=== PATIENT | male | born 1980 | race Caucasian/White ===

== ENCOUNTER 2017-08-18 01:26 | Inpatient (IN) | payer BC, OTHER ==
[~2017-08-18] VITALS: Ht 185.4 cm; Wt 88.5 kg
[2017-08-18] MEDS ORDERED: ZIPRASIDONE IM 20 MG VIAL. IM ONE ×4 (01:35→01:45)
[2017-08-18 03:41] LABS: BASO % 1 % (0-3); EOS % 0 % (0-3); HEMATOCRIT 43.8 % (39.0-53.0); HEMOGLOBIN 15.4 g/dL (13.0-17.5); LYMPH # 1.3 x10^3/uL (1.0-4.8); LYMPH % 28 % (24-48); MEAN CORPUSCULAR HEMOGLOBIN 31 pg (25-35); MEAN CORPUSCULAR HGB CONC 35 g/dL (31-37); MEAN CORPUSCULAR VOLUME 87 fL (79-100); MONO # 0.2 x10^3/uL (0.0-1.1); MONO % 4 % (0-9); NEUT % 66 % (31-73); PLATELET COUNT 257 x10^3/uL (140-400); RED BLOOD COUNT 5.02 x10^6/uL (4.30-5.70); RED CELL DISTRIBUTION WIDTH 13.8 % (11.5-14.5); WHITE BLOOD COUNT 4.5 x10^3/uL (4.0-11.0)
--- NOTE | 2017-08-18 03:44 | PHYS DOC ---
Past History Past Medical History: Alcoholism, Anxiety, Bipolar Past Surgical History: No Surgical History Smoking: Cigarettes, Less than 1pk/day Alcohol Use: Heavy Drug Use: None Adult General Chief Complaint Chief Complaint: SUICDAL IDEATION HPI HPI Patient is a 37-year-old gentleman who presents to the ER today by EMS secondary to comments that his regarding suicidal ideation and threats to harm himself. Patient has been drinking a significant amount of vodka today and is fairly intoxicated. Patient has alcohol on his breath. Upon his initial arrival to the ED my evaluation reveals the patient to his making comments to harm himself. Patient reports he is wants to . He reports he is wants to fall asleep and not wake up. Patient reports that he wants to leave here and go kill himself. Patient also reports that he hates everybody and he wants to kill everybody as well. Patient is extremely aggressive in the ER using multiple expletives comments and threats to myself as well as staff when verbally approached regarding our need to obtain labs in order to rule out other causes for his altered mentation in order to medically clear him for a total psychiatry evaluation. Patient became extremely agitated and verbally aggressive during this interaction. Patient was clearly not going to allow our staff to obtain an IV, obtain blood, or give him any medication IM. Patient reports he is mortified of needles and will absolutely refuse any injections while here. Patient reports he wants to get up and leave and feels that we are holding him against his will at this time. I have tried to explain to the patient that this time he is intoxicated and I cannot assess his competency her capacity for medical decision making and therefore we need to hold him here for his safety as well as safety of the community. Patient has repeated multiple comments regarding hating everybody here and wanting to kill everybody. I explained to him that his statements such as those, especially in light of was happening in the world i.e. [place], [place], that it would be extremely negligent on my part to let him leave here AGAINST MEDICAL ADVICE. Upon walking out of patient's room, [place] [employer] was actually already in the hallway and i have requested their for assistance in managing and restraining this patient. I have explained to them that I feel that this patient is at high risk to harm himself and poses a significant danger to the community with his comments of wanting to kill everybody. Although the patient is intoxicated, it is impossible for me to assess the true risk of this patient , whether or not he has an arsenal of guns and whether or not his threats are secondary to his intoxication or whether or not these are threats center and based upon legitimate planning. In either case I do not feel comfortable allowing this patient to sign out AGAINST MEDICAL ADVICE. We have [facility] security nearby to assist with management of this patient. After [place] [employer] officers have evaluated the patient, they feel that the patient is not an immediate threat to himself and or the community and they do not feel that it would be appropriate for them to assist with restraining the patient and that they feel that this would be a violation of his civil rights. Despite informing [place] police that as a medical professional I feel that the patient is not competent and does not have the capacity for medical decision making at this time and that I feel that he will likely need an involuntary hold , they once again informed me that they have run the case by their air cargo ground crew supervisor and that he has reiterated their policy that they are not to restrain or assist in restraining this patient as they feel that it would be a violation of the patient's civil rights despite my assessment. At this time I have deferred to the [place] police officers judgement since I'm not aware of what their policies and have no direct knowledge of their policy. At this time though, i have informed them that I do not feel that this is a safe situation for myself or for my staff here at [facility], especially in light of the patient's comments , his aggressive behavior, and his refusal to undress and our lack of knowledge as to whether not this patient (who has made threats to kill everyone here) has weapons on him. Once again I have requested from the [place] police officers that they assist us with holding patient down while he obtains a shot of Geodon to assist with chemical restraining of this patient. Again they have informed me that they feel that this would be a violation of his civil rights for them to hold him down to force medications on him despite understanding that as a medical professional and ER physician, that i have determined that this patient is a harm to himself and others and that he does not possess the ability to make decisions on his ow. They have once again confirmed from there air cargo ground crew supervisor that they will not be able to assist. Thanks to the assistance of our warehouse traffic supervisor and our nursing staff, we have been able to negotiate with the patient and he has allowed us to give him an injection of Geodon prior to undressing and searching him and placing an IV in him. He reports that once he is sedate that he would allow this to occur. Although clearly not optimal, I feel that in the situation that we are currently in that this is the best option that we have (given the limit resources and lack of police back up) to keep the patient, the community, and our medical staff a safe as possible. Patient has been reevaluated and is currently much calmer and is no longer making threats of killing other people. Patient is clearly still making threats of harming himself and still feels very depressed and is still making comments regarding wanting to sleep and not wake up. Review of systems: Constitutional: Denies fever or chills Eyes: Denies change in visual acuity, redness, or eye pain HENT: Denies nasal congestion or sore throat All other systems were reviewed and found to be within normal limits, except as documented in this note. Physical exam Constitutional: Well developed, well nourished, no acute distress, non-toxic appearance. HENT: Normocephalic, atraumatic, bilateral external ears normal, Eyes: EOMI, conjunctiva normal, no discharge. Reevaluation: Pupils 4 mm and reactive. Neck: Normal range of motion, no tenderness, supple, no stridor. Cardiovascular:Heart rate regular rhythm, Lungs & Thorax: Bilateral breath sounds clear to auscultation Abdomen: Bowel sounds normal, soft, no tenderness, no masses, no pulsatile masses. Skin: Warm, dry, no erythema, no rash. Back: No tenderness, no CVA tenderness. Extremities: No tenderness, no cyanosis, no clubbing, ROM intact, no edema. Neurologic: Alert and oriented X 3, normal motor function, normal sensory function, no focal deficits noted. Psychologic: Aggressive, tearful at times, agitated, threatening, suicidal ideation, homicidal ideation, Assessment and plan: 1. 37-year-old gentleman who is clearly intoxicated presents to the ED today by EMS secondary to being called by his roommate for having suicidal thoughts. Patient has been sedated chemically with Geodon 20 mg IM. Patient will need to have labs drawn to be medically cleared so that we can have him call psychiatry evaluate the patient further. Patient is medically stable for evaluation by mental health. Patient's alcohol level is elevated at 252. Patient will need to be more sober before mental health will do discuss her talk to patient for evaluation of his suicidality and his homicidality. Patient's currently resting comfortably and was no longer aggressive. Patient has been monitored in the ED. Patient is arousable. Patient will be assessed by mental health once patient is more awake and communicative and less intoxicated. Case will be signed out to the oncoming physician Dr. Kaur for final disposition after mental health/toe psychiatry evaluation. Current Medications Current Medications Current Medications Medications (Trade) Dose Ordered Sig/Renetta Start Time Stop Time Status Last Admin Dose Admin Ziprasidone (Geodon Im) 20 mg 1X ONCE 08/18/17 01:45 08/18/17 02:37 DC Allergies Allergies Allergies Coded Allergies Type Severity Reaction Last Updated Verified terbinafine Allergy Severe Rash 08/18/17 Yes EKG EKG [] Radiology/Procedures Radiology/Procedures [] Course & Med Decision Making Course & Med Decision Making 1 Pertinent Labs and Imaging studies reviewed. (See chart for details) []0754: Report received from Dr Doherty at 0600 shift change. Pt awake, Telepsych has evaluated him and called me to report pt needs involuntary inpatient psychiatric placement. Reports pt has multiple suicide risks including lack of family/support system and heavy etoh use. Apparently psych spoke with pt roommate who reported that whether pt intoxicated or not he's recently been saying that he knows why people kill other people. That pt drinks alcohol heavily daily. Pt came out of exam room, did agree to reenter the room for me to go over Telepsych recommendations. I advised him the screener's recommendations, he became angry yelling/cursing refusing to get back in the room. I advised him for other patient's safety and confidentiality he must remain in room he refused again. Security had to be called to keep patient in room. Awaiting Telepsych written report. 1930: Thru the day pt has been cooperative and calm. His ex SO came to visit, pt admits he needs help and was overheard admitting he needs inpatient etoh rehabilitation and help with destructive thoughts. His only requests thru the day have been food related. Multiple attempts to find placement for patient have been unsuccessful due to lack of beds or not taking "involuntary" status. Dr Lobato refused inpatient [facility] admission, stating that staffing for 1:1 not available. This was also confirmed in conversation with warehouse traffic supervisor. Pt signed out to Dr Escobar at 1800 shift change, see her documentation for further pt disposition. 2009: I assumed care of the patient at shift change. It sounds like when the patient first presented, he was very intoxicated, uncooperative, and agitated. This was more than 18 hours ago. Since I assumed care of the patient 2 hours ago , he has been resting comfortably and quietly. He has been entirely cooperative with nursing staff. He had a sandwich. Patient at this time states that he will be voluntarily admitted to a mental health facility. He does believe that he needs help. ED nursing staff is attempting to find him placement considering his improved mental status. I believe the patient is stable for voluntary admission to a mental health facility and at this time the patient is cooperative and calm. 2330 I took a phone call from the screener, Dr. Ruelas. I discussed with her the patient's improved condition since I have been here since 1800. We discussed the patient's presentation, his initial uncooperative behavior, and his improvement after he has sobered up. She had reviewed the patient's evaluation by the previous screener who evaluated him. She is concerned that the patient presents a significant risk. The previous screener had talked to the patient's family member and landlord. Based on those conversations, and the patient having access to guns, the previous screener had felt strongly that the patient is a danger. The previous screener had recommended involuntary status for that reason. Although the patient at this time is cooperative and is stating that he will go voluntarily, Dr. Ruelas is concerned that if he changed his mind, he needs to be at a facility where he can be switched to involuntary so that he can be kept for his own safety and the safety of others if needed. The facility that might have a bed for him, [address] [place] [address], does not have the capability of involuntary commitment. For This reason, Dr. Ruelas is not recommending that the patient be allowed to be admitted to that facility, and she recommends that he continued to be maintained as involuntary in the emergency department until an appropriate facility can be found for him, hopefully on 08/19. 0410 ED RN has faxed patient reports to [facility] and has talked to various personnel there on the phone. They initially stated that the patient could not be accepted a dose a lot of me at because his blood alcohol level was too high, however, that level is more than 24 hours old. I called [facility] and spoke with Princess Palmer, and Estelita, and then spoke with air cargo ground crew supervisor, Yanira. There was extended amount of discussion as to whether the patient will be voluntary or involuntary. The most recent recommendation by a psychiatrist, see above, is that the patient should continue to be involuntary as was recommended by the first psychiatrist who saw the patient via telepsych. The personnel at [facility] stated that if the patient is cooperative and wants to be voluntary, he cannot be involuntary. However, the concern is that if he goes somewhere where they're not able to handle involuntary, and then he ends up wanting to leave, he still poses a threat to himself and others and would need to be made involuntary. The [facility] staff also told me that even if they were to accept the patient at this time, he would not be transferred there right now, he would be placed on the "moratoria list." I understand this to mean that they would not have a bed right now but that he would be put in line. His placement on the list would be time stamped at the time of his screening evaluation which occurred on 08/18 at 0 7:49 AM. Group Social Worker, Yanira, stated that she is not able to accept the patient because of these factors and she is going to elevate the case to Dr. Rose who will be in about 8:00 this morning. I asked Yanira if she could please have Dr. Rose called the ED at that time and speak with Dr. Kaur, who will be taking over again at 06 100. He is familiar with the patient's case having been here yesterday and will be able to discuss the concerns about the patient's safety and involuntary commitment and hopefully be able to reach a consensus about what can be done to help the patient. 0640: I discussed pt with Dr Ecsobar at 0600 shift change. Interim events noted. Psychiatric and rehab facilities continue to defer for varying reasons and the patient is not being cared for appropriately, his mental health and substance abuse needs are not being met. Pt has been awaiting placement now for > 29 hours and the current system in place is inadequate. Pt sleeping currently, I am awaiting call from Dr Rose. Also waiting for [facility] Olga Smart to hopefully assist with placement. 0746: Patient is awake I went in to give him an update. Although is being cooperative he does express frustration that he's been locked in his room for 30 hours. He was advised that he is able to walk the halls with the nurse as well as she's not busy, I also offered an Ativan or Xanax to help with his anxiety and impatient. He is agreeable and appreciative he admits that he's taken Xanax in the past its just never been prescribed to him. Xanax 0.5 mg ordered now. 0955: Facilities have apparently recommended to RN that repeating etoh and negative findings may aid in placement, despite the fact pt has been here 30+ hours under supervision and no etoh intake or intoxicated behavior. Repeat etoh ordered, <10 result. Pt continues to wait patiently. 1104: I just took a phone call from yet another tele-psych screener this time the psychiatrist was Dr. Gallagher. She advises that the patient is a very high risk for suicidal and homicidal ideation, she says that the patient continues to express suicidal ideation and hopelessness and actually empathizes with recent [place] shooter. She says the patient needs involuntary inpatient treatment and recommends 3 medications: Sertraline 100 mg at bedtime, Seroquel XR 100 mg at bedtime, and Seroquel 50 mg every 6 hours as needed for anxiety/ agitation. Seroquel XR is not on formulary the other 2 have been ordered. 1328: Pt has been calm/cooperative, RN gave seroquel 50mg earlier per patient request as he has now been in the ED exam room 36 hours. He is frustrated because at this point he voluntarily wants to be transferred and seek help. He is aware that is the recommendation of his conservation enforcement officer and requirement of his estranged significant other. He is resting comfortably at this time. 1550: Patient was apparently accepted to [facility] for inpatient admission, somehow he was accepted for voluntary status. He reportedly refused transfer, upon notifying the guidance Center up until this point has considered the patient voluntary only they have now changed their assessment. They feel the patient is not capable of making medical decisions for himself they have declared him an involuntary and at this time are reportedly trying to place the patient at [facility]. 1800: Placement attempts remain ongoing, Pt remains calm/cooperative, will need to be signed out to incoming ED Dr Doherty for 1800 shift change. August 19, 2017: 7:05 PM. After multiple times for several days of trying to obtain adequate mental health placement for this patient, all option is been drained. We have just discussed with [facility], and they are not able to accommodate us at this time. Given the length of time the patient has been in the ED, I feel the most appropriate admitted to the ICU for closer observation and a more stable environment. Patient be admitted to the hospital for homicidal /suicidal ideation. I'll call use disorder. Patient's been placed on withdrawal precautions for alcohol. Patient be a 101. I discussed the case with Dr. Cancino who has agreed to assist us with the care of this patient in the ICU. Critical care time was 35 minutes exclusive of procedures. Current care time of 35 minutes reutilized and treatment and management of this patient's unstable psychiatric condition. IM Geodon had been given to the patient. Patient 's been monitored in the ED now for close to 48 hours he'll be admitted to the ICU for further monitoring. Dragon Disclaimer Dragon Disclaimer This electronic medical record was generated, in whole or in part, using a voice recognition dictation system. Departure Departure: Impression: Primary Impression: Alcohol abuse Additional Impressions: Suicidal ideation Homicidal ideation Disposition: ADMITTED INPATIENT Admitting Physician: Jos eC Cancino Condition: STABLE Referrals: KARMA LOBATO DO (PCP) Problem Qualifiers NICOL DOHERTY MD Aug 18, 2017 03:44 DAVID KAUR DO Aug 18, 2017 08:02 DESTINY ESCOBAR MD Aug 18, 2017 20:20
[2017-08-18 03:55] LABS: ALBUMIN 3.9 g/dL (3.4-5.0); ALBUMIN/GLOBULIN RATIO 1.1 (1.0-1.7); CALCIUM 8.5 mg/dL (8.5-10.1); CREATININE 0.9 mg/dL (0.7-1.3); GFR 94.4; POTASSIUM 3.7 mmol/L (3.5-5.1); TOTAL BILIRUBIN 0.3 mg/dL (0.2-1.0); TOTAL PROTEIN 7.4 g/dL (6.4-8.2)
[2017-08-18 03:56] LABS: ACETAMIN < 2.0 mcg/mL (10-30); ETHANOL 252 mg/dL (0-10); SALIC 0.8 mg/dL (2.8-20.0)
[2017-08-18] MEDS ORDERED: IV NORMAL SALINE 1,000ML 1,000 ML IV SCH (06:59)
[2017-08-18] MEDS ORDERED: OLANZapine 2.5 MG TABLET PO ONE (08:15)
[2017-08-18] MEDS: NICOTINE 14MG PATCH. TD SCH (08:45)
[2017-08-18] MEDS: NICOTINE POLACRILEX GUM 2 MG GUM. BC PRN ×2 (11:00→17:30)
[2017-08-18] MEDS ORDERED: ACETAMINOPHEN 325 MG TABLET PO ONE (12:00)
[2017-08-18 23:17] LABS: AMPHETAMINE/METHAMPHETAMINE NEG (NEG); BARBITURATES NEG (NEG); BENZODIAZEPINES NEG (NEG); CANNABINOIDS NEG (NEG); COCAINE NEG (NEG); METHADONE NEG (NEG); OPIATES NEG (NEG); PHENCYCLIDINE NEG (NEG)
[2017-08-19] MEDS ORDERED: ALPRAZolam 0.5 MG TABLET PO ONE (07:45)
[2017-08-19] MEDS ORDERED: ALPRAZolam 0.25 MG TABLET PO ONE (08:00)
[2017-08-19] MEDS: NICOTINE POLACRILEX GUM 2 MG GUM. BC PRN (08:03)
[2017-08-19] MEDS: NICOTINE 14MG PATCH. TD SCH (08:57)
[2017-08-19] MEDS ORDERED: SERTRALINE 100 MG TABLET. PO ONE (11:30)
[2017-08-19] MEDS: QUEtiapine 50 MG TABLET. PO PRN ×2 (11:57→18:03)
[2017-08-19] MEDS ORDERED: LORazepam 1 MG TABLET PO PRN (19:00)
[2017-08-19] MEDS ORDERED: ONDANSETRON PF 4 MG/2 ML VIAL. IV PRN (19:00)
[2017-08-19 20:40] VITALS: BP 136/91
[2017-08-19 22:00] VITALS: BP 134/84
[2017-08-19 23:00] VITALS: BP 142/88
[2017-08-20] VITALS (12 sets, daily range): BP systolic 90–144; BP diastolic 56–90
[2017-08-20] MEDS: QUEtiapine 50 MG TABLET. PO PRN ×3 (00:11→20:43)
[2017-08-20] MEDS: MULTIVITAMIN with MINERAL TABLET. PO SCH (08:09)
[2017-08-20] MEDS: FOLIC ACID 1 MG TABLET PO SCH (08:09)
[2017-08-20] MEDS: NICOTINE 14MG PATCH. TD SCH (08:09)
[2017-08-20] MEDS ORDERED: FLU VACC QS2017-18 (36MOS+)/PF 0.5 ML SYRINGE. VAX IM ONE (09:00)
[2017-08-20] MEDS: LORazepam 1 MG TABLET PO PRN ×3 (09:29→23:42)
[2017-08-20] MEDS ORDERED: MAGNESIUM CITRATE 296 ML SOLUTION. PO ONE (09:30)
--- NOTE | 2017-08-20 16:38 | HP ---
ADMIT DATE: 08/19/2017 HISTORY OF PRESENT ILLNESS: The patient is a 37-year-old male patient who has been for almost 48 hours at the Emergency Room where he was seen because he made comments to his girlfriend that he has a suicidal ideation and drinking a significant amount of vodka and is fairly intoxicated. He was initially seen for evaluation to reveal the patient has made comments to harm himself and said he wants to . He reports that he wants to fall asleep and not wake up. ____ to go and kill himself and he said that he hates everybody and he wants to kill everybody as well. He was extremely aggressive in the ER, using multiple expletive comments and threats to the physician and the other nursing staff invariably approached regarding the need to obtain labs in order to rule out other causes of his altered mentation. After 48 hours and after contacting the Telepsych who recommended inpatient psych treatment, he was basically admitted to the ICU to have one-on-one sitter. [facility] and [facility] was accepted to go there involuntary and we are waiting for placement for him there. PAST MEDICAL HISTORY: Significant for ____, manic depressive disorder, and bipolar disorder. ____ HISTORY: Unremarkable. ALLERGIES: He is allergic to terbinafine. MEDICATIONS: He is actually on no medication at home. FAMILY HISTORY: One brother and sister both younger and healthy. His father is alive and has type 2 diabetes. Mother is alive and has depression. SOCIAL HISTORY: He lives with the girlfriend. He smokes electronic cigarettes. He drinks variable amounts of alcohol. He has been sober multiple times. He said he does not feel good when he is not drinking and alcohol energized him, but apparently he managed to be sober on multiple occasions and for variable length of time. The last one was lasting about 3-1/2 months. REVIEW OF SYSTEMS: Unremarkable. PHYSICAL EXAMINATION: GENERAL: On examining him on arrival to the ICU, he looked well and was clearly in no apparent respiratory distress, pale but no jaundice, cyanosis, or thyromegaly. No jugular venous distention. No limb edema. VITAL SIGNS: His heart rate was 91, blood pressure was 134/81, temperature was 97.5, respiratory rate was 18, and oxygen saturation was 99%. HEAD, EYES, EARS, NOSE, AND THROAT: Showed normocephalic, atraumatic. NECK: Supple. HEART: Showed normal first and second heart sound with no gallop, rub, or murmur. CHEST: Clear to auscultation. No crepitation or rhonchi. ABDOMEN: Distended, soft, nontender. NEUROLOGIC: He was more awake, alert, responding appropriately. Cranial nerves intact, although he continued to avoid eye contact. He seemed to be grossly neurologically normal. LABORATORY DATA: His lab work showed a serum sodium 146, potassium 3.7, chloride 109, bicarbonate 27, anion gap of 10, BUN 9, creatinine 0.9, estimated GFR was 94 mL per minute, his glucose was 122, calcium was 8.5. Total bilirubin, AST, ALT, alkaline phosphatase were normal. Total protein was 7.4, albumin 3.9. His white cell count was 4500, hemoglobin 15, hematocrit 44, MCV 87, and platelet count 257,000. His toxic screen showed blood alcohol level on admission was 252, it came down to less than 10 on admission to the ICU. IMPRESSION AND PLAN: In summary, this is a 37-year-old male patient who was admitted with alcohol abuse and alcohol intoxication, suicidal ideation, and homicidal ideation. We are awaiting placement for him at the ____. He was admitted involuntarily to inpatient psychiatric treatment. SOY SCHREIBER MD DR: RUBÉN/cathy JOB#: [id number] / [id number]
--- NOTE | 2017-08-20 22:29 | PN ---
DATE: 08/20/2017 SUBJECTIVE: The patient was admitted yesterday after spending 2 days in the Emergency Room. He is here in the ICU. He continued to complain of anxiety and hopelessness; however, ____ any suicidal or homicidal ideation. He is involuntarily committed to inpatient psychiatric treatment at [facility] and was just waiting for a bed. He is ____ according to nursing staff. PHYSICAL EXAMINATION: GENERAL: When I examined him this afternoon, he looked well and was clearly in no apparent respiratory distress. No pallor, jaundice, cyanosis, or thyromegaly. No jugular venous distention. No edema. VITAL SIGNS: His heart rate was 74, blood pressure 118/82, temperature was 97.9, respiratory rate was 16, and oxygen saturation was 95%. The rest of the exam is unremarkable. ASSESSMENT AND PLAN: Alcohol abuse, alcohol intoxication, suicidal ideation, homicidal ideation. Plan is to await placement at [facility]. SOY SCHREIBER MD DR: RUÉBN/cathy JOB#: [id number] / [id number]
[2017-08-21] MEDS: LORazepam 1 MG TABLET PO PRN ×2 (00:58→01:59)
[2017-08-21 01:02] VITALS: BP 150/85
[2017-08-21] MEDS: QUEtiapine 50 MG TABLET. PO PRN (03:10)
[2017-08-21 06:20] LABS: BASO # 0.1 x10^3/uL (0.0-0.2); BASO % 1 % (0-3); EOS % 1 % (0-3); HEMOGLOBIN 15.5 g/dL (13.0-17.5); LYMPH # 1.1 x10^3/uL (1.0-4.8); LYMPH % 20 % (24-48); MEAN CORPUSCULAR HEMOGLOBIN 31 pg (25-35); MEAN CORPUSCULAR HGB CONC 35 g/dL (31-37); MEAN CORPUSCULAR VOLUME 88 fL (79-100); MONO # 0.5 x10^3/uL (0.0-1.1); MONO % 10 % (0-9); NEUT # 3.7 x10^3uL (1.8-7.7); NEUT % 68 % (31-73); PLATELET COUNT 238 x10^3/uL (140-400); RED BLOOD COUNT 4.99 x10^6/uL (4.30-5.70); RED CELL DISTRIBUTION WIDTH 13.6 % (11.5-14.5); WHITE BLOOD COUNT 5.5 x10^3/uL (4.0-11.0)
[2017-08-21 06:33] LABS: ALBUMIN 3.7 g/dL (3.4-5.0); ALBUMIN/GLOBULIN RATIO 1.1 (1.0-1.7); CALCIUM 8.6 mg/dL (8.5-10.1); CREATININE 0.9 mg/dL (0.7-1.3); GFR 94.4; POTASSIUM 3.4 mmol/L (3.5-5.1); TOTAL BILIRUBIN 0.4 mg/dL (0.2-1.0); TOTAL PROTEIN 7.2 g/dL (6.4-8.2)
[2017-08-21 06:42] VITALS: BP 134/94
[2017-08-21 12:16] VITALS: BP 138/85
[2017-08-21] MEDS: MULTIVITAMIN with MINERAL TABLET. PO SCH (12:35)
[2017-08-21] MEDS: NICOTINE 14MG PATCH. TD SCH (12:35)
[2017-08-21] MEDS: FOLIC ACID 1 MG TABLET PO SCH (12:35)
[2017-08-21 13:53] LABS: FREE T4 0.83 ng/dL (0.76-1.46); THYROID STIM HORMONE (TSH) 2.325 uIU/mL (0.358-3.740)
--- NOTE | 2017-08-21 14:30 | DS ---
DATE OF DISCHARGE: 08/21/2017 The patient is a 37-year-old male patient who was admitted after he has stayed in the Emergency Room for almost 2 days, as no placement was available for him. Eventually, he was admitted to ICU for 1:1 observation, as he came with alcohol intoxication, has suicidal and homicidal ideation, no actual attempt was made and no plan was there. Apparently, he has had previous suicidal attempts by cutting his wrist according to him. He has remained hemodynamically stable. His blood alcohol level on admission was 252 and most recent one was less than 10. The toxicology screen was negative for cannabinoids, cocaine, benzodiazepine, amphetamine, methamphetamine, phencyclidine, barbiturate, methadone and opiates. We did start him on alcohol withdrawal, protocol has received banana bag as well as was treated with folic acid, multivitamin, Ativan and nicotine patch for his nicotine addiction, and Seroquel 50 mg every 6 hours for agitation. The psychiatrist was called stating that he was accepted for inpatient psychiatric stabilization at [facility] and will be discharged there today. PHYSICAL EXAMINATION: GENERAL: On examining him, he looked well and was clearly in no apparent respiratory distress; pale. No jaundice, cyanosis or thyromegaly. No jugular venous distension. No limb edema. VITAL SIGNS: His heart rate was 88, blood pressure 138/85, temperature was 97.6, respiratory rate was 20, and oxygen saturation was 98%. HEAD, EYES, EARS, NOSE AND THROAT: Normocephalic, atraumatic. NECK: Supple. HEART: Showed normal first and second heart sounds with no gallop, rub or murmur. CHEST: Clear to auscultation. No crepitation or rhonchi. ABDOMEN: Distended, soft, nontender. NEUROLOGIC: He was awake, alert, responding appropriately. All his cranial nerves are intact. He ambulates without assistance or assistive devices. His intake over the last 24 hours was 2040, no output was recorded. LABORATORY DATA: This morning showed his white cell count to be 5500, hemoglobin 15.5, hematocrit 44, MCV 88 and platelet count 238,000. Serum sodium was 143, potassium 3.4, chloride 105, bicarbonate 29, anion gap of 9, BUN 8, creatinine 0.9, estimated GFR was 94 mL per minute. His glucose was 97, calcium was 8.6. Total bilirubin, AST, ALT, alkaline phosphatase were normal. Total protein 7.2, albumin 3.7. DISCHARGE MEDICATIONS: He will be discharged to [facility] to continue on folic acid 1 mg once a day, multivitamin 1 tablet once a day, lorazepam 4-8 mg every hour as needed for alcohol withdrawal, quetiapine fumarate or Seroquel 50 mg every 6 hours and nicotine chewing gum every hour as well as nicotine patch 14 mg topically once a day. FINAL DISCHARGE DIAGNOSES: 1. Alcohol abuse. 2. Alcohol intoxication. 3. Suicidal ideation. 4. Homicidal ideation. SOY SCHREIBER MD DR: RUBÉN/cathy JOB#: [id number] / [id number]
== END 2017-08-21 13:44 | DRG 896 ==
LOC: EEVIPCON 01:26 → ER 01:26 → ICU 08-19 19:20
PROVIDERS: ADMIT Internal Medicine; ATTEND Internal Medicine
DX: F10.229 Alcohol dependence with intoxication, unspecified (principal); G93.41 Metabolic encephalopathy; R45.851 Suicidal ideations; R45.850 Homicidal ideations; F10.239 Alcohol dependence with withdrawal, unspecified; Y90.0 Blood alcohol level of less than 20 mg/100 ml; F17.290 Nicotine dependence, other tobacco product, uncomplicated; F31.9 Bipolar disorder, unspecified; F41.9 Anxiety disorder, unspecified; Z81.8 Family history of other mental and behavioral disorders; Z83.3 Family history of diabetes mellitus; Z88.8 Allergy status to other drugs, medicaments and biological substances
CPT/HCPCS: 36415; 80053; 80307; 84439; 84443; 84481; 85025; 87641; 90686; 99406; G0480; J3486; G0479

== ENCOUNTER 2018-05-19 17:23 | Emergency (ER) | payer SELFPAY ==
[~2018-05-19] VITALS: Ht 185.4 cm; Wt 102.5 kg
[2018-05-19] MEDS ORDERED: IV NORMAL SALINE 1,000ML 1,000 ML IV SCH (17:36)
[2018-05-19 17:58] LABS: BASO # 0.1 x10^3/uL (0.0-0.2); BASO % 1 % (0-3); EOS % 0 % (0-3); HEMATOCRIT 43.5 % (39.0-53.0); HEMOGLOBIN 14.9 g/dL (13.0-17.5); LYMPH # 1.8 x10^3/uL (1.0-4.8); LYMPH % 22 % (24-48); MEAN CORPUSCULAR HEMOGLOBIN 30 pg (25-35); MEAN CORPUSCULAR HGB CONC 34 g/dL (31-37); MEAN CORPUSCULAR VOLUME 86 fL (79-100); MONO # 0.6 x10^3/uL (0.0-1.1); MONO % 7 % (0-9); NEUT # 5.5 x10^3uL (1.8-7.7); NEUT % 69 % (31-73); PLATELET COUNT 333 x10^3/uL (140-400); RED BLOOD COUNT 5.03 x10^6/uL (4.30-5.70); RED CELL DISTRIBUTION WIDTH 13.7 % (11.5-14.5); WHITE BLOOD COUNT 7.9 x10^3/uL (4.0-11.0)
[2018-05-19 18:13] LABS: ALBUMIN 4.3 g/dL (3.4-5.0); CALCIUM 8.8 mg/dL (8.5-10.1); DIRECT BILIRUBIN 0.2 mg/dL (0.0-0.2); GFR 83.2; MAGNESIUM 1.7 mg/dL (1.8-2.4); POTASSIUM 3.9 mmol/L (3.5-5.1); TOTAL BILIRUBIN 0.7 mg/dL (0.2-1.0); TOTAL PROTEIN 7.7 g/dL (6.4-8.2)
--- NOTE | 2018-05-19 18:30 | PHYS DOC ---
Past History Past Medical History: Alcoholism, Anxiety, Bipolar, Depression Past Surgical History: No Surgical History Smoking: Cigarettes, Less than 1pk/day Alcohol Use: Heavy Drug Use: None Adult General Chief Complaint Chief Complaint: SUICDAL IDEATION HPI HPI 38-year-old male presents with suicidal ideation. The patient has been diagnosed with bipolar in the past and he has not been taking his medications for last 2 weeks. He ran out because he could not afford them. The patient had a disagreement with his boss on Saturday and started drinking alcohol heavily for the last 3 days. He states that drinking at least a liter of vodka a day. He has also been thinking about suicide much more intently these last several days. He has a history of suicidal thoughts but they're usually under control. At this time he felt like he was getting more serious about the suicide and he should come in before he actually didn't hurt himself. His plan was to hang himself. The patient has expressed wanting to get help before his thoughts get anymore intense. The patient's last drink of alcohol was today prior to arrival. He denies any other complaints. Review of Systems Review of Systems Constitutional: Denies fever or chills [] Eyes: Denies change in visual acuity, redness, or eye pain [] HENT: Denies nasal congestion or sore throat [] Respiratory: Denies cough or shortness of breath [] Cardiovascular: No additional information not addressed in HPI [] GI: Denies abdominal pain, nausea, vomiting, bloody stools or diarrhea [] : Denies dysuria or hematuria [] Musculoskeletal: Denies back pain or joint pain [] Integument: Denies rash or skin lesions [] Neurologic: Denies headache, focal weakness or sensory changes [] Endocrine: Denies polyuria or polydipsia [] All other systems were reviewed and found to be within normal limits, except as documented in this note. Current Medications Current Medications Current Medications Medications (Trade) Dose Ordered Sig/Renetta Start Time Stop Time Status Last Admin Dose Admin Multivitamins/ Minerals 10 ml/ Folic Acid 1 mg/ Thiamine HCl 100 mg/Sodium Chloride 1,011.2 ml @ 0 mls/hr 1X ONCE 05/19/18 18:45 05/19/18 18:46 Sodium Chloride 1,000 ml @ 1,000 mls/hr Q1H 05/19/18 17:36 05/19/18 18:35 05/19/18 18:23 1,000 MLS/HR Allergies Allergies Allergies Coded Allergies Type Severity Reaction Last Updated Verified terbinafine Allergy Severe Rash 08/18/17 Yes Physical Exam Physical Exam Constitutional: Well developed, well nourished, no acute distress, non-toxic appearance. [] HENT: Normocephalic, atraumatic, bilateral external ears normal, oropharynx moist, no oral exudates, nose normal. [] Eyes: PERRLA, EOMI, conjunctiva normal, no discharge. [] Neck: Normal range of motion, no tenderness, supple, no stridor. [] Cardiovascular:Heart rate regular rhythm, no murmur [] Lungs & Thorax: Bilateral breath sounds clear to auscultation [] Abdomen: Bowel sounds normal, soft, no tenderness, no masses, no pulsatile masses. [] Skin: Warm, dry, no erythema, no rash. [] Back: No tenderness, no CVA tenderness. [] Extremities: No tenderness, no cyanosis, no clubbing, ROM intact, no edema. [] Neurologic: Alert and oriented X 3, normal motor function, normal sensory function, no focal deficits noted. [] Psychologic: Suicidal, mood depressed. [] Current Patient Data Vital Signs Vital Signs Date Time Temp Pulse Resp B/P (MAP) Pulse Ox O2 Delivery O2 Flow Rate FiO2 05/19/18 17:25 98.0 114 20 98 Room Air Lab Results Laboratory Tests Test 05/19/18 17:42 White Blood Count 7.9 x10^3/uL (4.0-11.0) Red Blood Count 5.03 x10^6/uL (4.30-5.70) Hemoglobin 14.9 g/dL (13.0-17.5) Hematocrit 43.5 % (39.0-53.0) Mean Corpuscular Volume 86 fL (79-100) Mean Corpuscular Hemoglobin 30 pg (25-35) Mean Corpuscular Hemoglobin Concent 34 g/dL (31-37) Red Cell Distribution Width 13.7 % (11.5-14.5) Platelet Count 333 x10^3/uL (140-400) Neutrophils (%) (Auto) 69 % (31-73) Lymphocytes (%) (Auto) 22 % (24-48) L Monocytes (%) (Auto) 7 % (0-9) Eosinophils (%) (Auto) 0 % (0-3) Basophils (%) (Auto) 1 % (0-3) Neutrophils # (Auto) 5.5 x10^3uL (1.8-7.7) Lymphocytes # (Auto) 1.8 x10^3/uL (1.0-4.8) Monocytes # (Auto) 0.6 x10^3/uL (0.0-1.1) Eosinophils # (Auto) 0.0 x10^3/uL (0.0-0.7) Basophils # (Auto) 0.1 x10^3/uL (0.0-0.2) Sodium Level 145 mmol/L (136-145) Potassium Level 3.9 mmol/L (3.5-5.1) Chloride Level 105 mmol/L (98-107) Carbon Dioxide Level 25 mmol/L (21-32) Anion Gap 15 (6-14) H Blood Urea Nitrogen 10 mg/dL (8-26) Creatinine 1.0 mg/dL (0.7-1.3) Estimated GFR (Cockcroft-Gault) 83.2 Glucose Level 97 mg/dL (70-99) Calcium Level 8.8 mg/dL (8.5-10.1) Magnesium Level 1.7 mg/dL (1.8-2.4) L Total Bilirubin 0.7 mg/dL (0.2-1.0) Direct Bilirubin 0.2 mg/dL (0.0-0.2) Aspartate Amino Transferase (AST) 16 U/L (15-37) Alanine Aminotransferase (ALT) 32 U/L (16-63) Alkaline Phosphatase 84 U/L (46-116) Total Protein 7.7 g/dL (6.4-8.2) Albumin 4.3 g/dL (3.4-5.0) Ethyl Alcohol Level 86 mg/dL (0-10) H EKG EKG [] Radiology/Procedures Radiology/Procedures [] Course & Med Decision Making Course & Med Decision Making Pertinent Labs and Imaging studies reviewed. (See chart for details) The patient's labs are unremarkable. His alcohol level is 86. His UDS is negative. The patient had a tele-psych consultation. The psychiatrist has recommended that he be admitted to an inpatient unit for acute stabilization of this suicidal thoughts and restart his meds. We're working on placement. The patient has been accepted to store [facility] in [facility]. We will transfer him there by ambulance. [] Dragon Disclaimer Dragon Disclaimer This electronic medical record was generated, in whole or in part, using a voice recognition dictation system. Departure Departure: Referrals: ZACK SANTIAGO (PCP) Scripts No Active Prescriptions or Reported Meds WILLIAM PÉREZ DO May 19, 2018 18:30
[2018-05-19] MEDS ORDERED: MVI, ADULT NO.4 WITH VIT K 10 ML, FOLIC ACID 1 MG, THIAMINE 100 MG in IV NORMAL SALINE ... IV ONE ×4 (18:45)
[2018-05-19 21:03] LABS: BARBITURATES NEG (NEG); BENZODIAZEPINES NEG (NEG); CANNABINOIDS NEG (NEG); COCAINE NEG (NEG); METHADONE NEG (NEG); OPIATES NEG (NEG); PHENCYCLIDINE NEG (NEG)
[2018-05-19 21:05] LABS: AMPHETAMINE/METHAMPHETAMINE NEG (NEG); CLARITY,URINE CLEAR; COLOR,URINE YELLOW; GLUCOSE,URINE NEG (NEG)
[2018-05-19 21:06] LABS: BACTERIA,URINE FEW /HPF (0-FEW); BILIRUBIN,URINE NEG (NEG); NITRITE,URINE NEG (NEG); RBC,URINE 0 /HPF (0-2); UROBILINOGEN,URINE 1 mg/dL (0.2 mg/dL); WBC,URINE OCC /HPF (0-4)
[2018-05-20 00:10] VITALS: BP 129/77
== END 2018-05-20 00:45 ==
LOC: ER 17:23
DX: R45.851 Suicidal ideations (principal); F41.9 Anxiety disorder, unspecified; F31.9 Bipolar disorder, unspecified; F17.210 Nicotine dependence, cigarettes, uncomplicated; F10.20 Alcohol dependence, uncomplicated; Z88.8 Allergy status to other drugs, medicaments and biological substances; Y90.4 Blood alcohol level of 80-99 mg/100 ml
CPT/HCPCS: 36415; 80048; 80076; 80307; 81001; 83735; 85025; 96365; 99285; G0480; G0479; J7030